=== PATIENT | female | born 1980 | race Caucasian/White ===

== ENCOUNTER 2017-02-12 09:05 | Emergency (ER) | payer OTHER ==
[~2017-02-12] VITALS: Ht 160 cm; Wt 60.5 kg
[2017-02-12 09:07] VITALS: Ht 160 cm; Wt 60.5 kg
[2017-02-12] MEDS ORDERED: ONDANSETRON (ODT) 4 MG TAB ODT STA (09:22)
[2017-02-12] MEDS ORDERED: AZIT250T94 PO (09:24)
[2017-02-12] MEDS ORDERED: D-ME473S18 PO (09:24)
[2017-02-12] MEDS ORDERED: IBUP-1542 PO (09:25)
[2017-02-12] MEDS ORDERED: ACETAMINOPHEN 325 MG TAB PO ONE (09:30)
--- NOTE | 2017-02-12 09:31 | ERD ---
ER Documentation Chief Complaint Date/Time DATE: 02/12/17 TIME: 09:29 Chief Complaint SORETHROAT AND HEAD CONGESTION X2 DAYS HPI This 36-year-old female complains of nasal congestion, sore throat and cough for last 3 days. She is some pain in the maxillary area as well. She denies fevers, abdominal pain, diarrhea. She has nausea but no vomiting ROS All systems reviewed and are negative except as per history of present illness. Medications Home Meds Active Scripts Ibuprofen* (Motrin*) 600 Mg Tab, 600 MG PO Q6, #15 TAB Prov:GENO YUEN MD 02/12/17 Dextromethorphan Hb-Promethazine Hcl (Promethazine DM Syrup) 473 Ml Syrup, 5 ML PO Q6H Y for COUGH, #4 OZ Prov:GENO YUEN MD 02/12/17 Azithromycin* (Zithromax*) 250 Mg Tablet, 250 MG PO .ZPACK DIRECTED, #6 TAB TAKE 500 MG (2 TABS) THE FIRST DAY THEN 250 MG (1 TAB) DAYS 2-5 Prov:GENO YUEN MD 02/12/17 Allergies Allergies: Coded Allergies: No Known Allergy (Unverified , 08/06/14) PMhx/Soc History of Surgery: No Anesthesia Reaction: No Hx Neurological Disorder: No Hx Respiratory Disorders: No Hx Cardiac Disorders: No Hx Psychiatric Problems: No Hx Miscellaneous Medical Probl: No Hx Alcohol Use: No Hx Substance Use: No Hx Tobacco Use: No Physical Exam Vitals Vital Signs Date Time Temp Pulse Resp B/P Pulse Ox O2 Delivery O2 Flow Rate FiO2 02/12/17 09:07 98.7 98 18 112/56 99 Physical Exam Const: [] Alert, [id number]. Head: Atraumatic Eyes: Normal Conjunctiva ENT: Normal External Ears, Nose and Mouth. TMs normal. 3+ nasal congestion. Mild maxillary tenderness. Oropharynx normal except postnasal drip. Neck: Full range of motion..~ No meningismus. Resp: Clear to auscultation bilaterally Cardio: Regular rate and rhythm, no murmurs Abd: Soft, non tender, non distended. Normal bowel sounds Skin: No petechiae or rashes Back: No midline or flank tenderness Ext: No cyanosis, or edema Neur: Awake and alert Psych: Normal Mood and Affect Results 24 hrs Current Medications Medications (Trade) Dose Ordered Sig/Francisco Route PRN Reason Start Time Stop Time Status Last Admin Dose Admin Ondansetron HCl (Zofran Odt) 8 mg ONCE STAT ODT 02/12/17 09:22 02/12/17 09:23 DC Acetaminophen (Tylenol Tab) 650 mg ONCE ONCE PO 02/12/17 09:30 02/12/17 09:31 Procedures/MDM Patient presents with URI symptoms signs of possible sinusitis. She will treated with Zithromax, promethazine and Tylenol. She was given Zofran for nausea here in the ED as well as Tylenol. The patient was stable with no new complaints during the ER course. Clinically, there is no current evidence to suggest meningitis, sepsis, acute abdomen, pneumonia, acute coronary syndrome, pulmonary embolism, or any other emergent condition appearing to require further evaluation or hospitalization. The patient should certainly return for any new or worsening symptoms per the aftercare instructions. They should otherwise follow-up with her primary care doctor for reevaluation this week. Departure Diagnosis: Primary Impression: Sinusitis Sinusitis location: frontal Chronicity: unspecified Qualified Code: J32.1 - Frontal sinusitis, unspecified chronicity Condition: Stable Patient Instructions: Sinusitis, Abx Tx Additional Instructions: Recheck for new or worsening symptoms or primary care doctor. GENO YUEN MD Feb 12, 2017 09:31
== END 2017-02-12 09:38 | disposition home or self-care (01) ==
LOC: FTE 09:05
DX: J32.1 Chronic frontal sinusitis (principal); R11.0 Nausea
CPT/HCPCS: Z7502; Z7610; 99284

== ENCOUNTER 2017-02-18 09:07 | Emergency (ER) | payer OTHER ==
[~2017-02-18] VITALS: Wt 61.0 kg
[~2017-02-18 09:07] MED LIST: AZIT250T94 PO; D-ME473S18 PO; IBUP-1542 PO
[2017-02-18 10:14] LABS: BASOPHILS % 0.2 % (0.0-2.0); EOSINOPHILS # 0.1 10^3/ul (0.0-0.5); EOSINOPHILS % 0.8 % (0.0-7.0); HEMATOCRIT 36.8 % (37.0-47.0); HEMOGLOBIN 12.2 g/dl (12.0-16.0); LYMPHOCYTES # 1.5 10^3/ul (0.8-2.9); LYMPHOCYTES % 16.9 % (15.0-51.0); MEAN CORPUSCULAR HEMOGLOBIN 28.9 pg (29.0-33.0); MEAN CORPUSCULAR HGB CONC 33.2 g/dl (32.0-37.0); MEAN CORPUSCULAR VOLUME 87.2 fl (82.0-101.0); MEAN PLATELET VOLUME 9.4 fl (7.4-10.4); MONOCYTE # 0.7 10^3/ul (0.3-0.9); NEUTROPHIL # 6.5 10^3/ul (1.6-7.5); NEUTROPHILS % 73.6 % (39.0-77.0); PLATELET COUNT 223 10^3/UL (140-415); RED BLOOD COUNT 4.22 10^6/ul (4.20-5.40); RED CELL DISTRIBUTION WIDTH 12.2 % (11.5-14.5); WHITE BLOOD COUNT 8.9 10^3/ul (4.8-10.8)
[2017-02-18 10:15] LABS: ADD UMIC NO; UR ASCORBIC ACID NEGATIVE (NEGATIVE); UR BILIRUBIN (Dip) NEGATIVE (NEGATIVE); UR BLOOD (Dip) NEGATIVE (NEGATIVE); UR CLARITY CLEAR (CLEAR); UR COLOR YELLOW (YELLOW); UR GLUCOSE (Dip) NEGATIVE (NEGATIVE); UR KETONES (Dip) NEGATIVE (NEGATIVE); UR LEUKOCYTE ESTERASE (Dip) NEGATIVE Leu/ul (NEGATIVE); UR NITRITE (Dip) NEGATIVE (NEGATIVE); UR SPECIFIC GRAVITY (Dip) 1.011 (1.003-1.030); UR TOTAL PROTEIN (Dip) NEGATIVE (NEGATIVE); UR UROBILINOGEN (Dip) NEGATIVE (NEGATIVE)
[2017-02-18 10:21] LABS: ADD SCAN DIFF NO
--- NOTE | 2017-02-18 10:27 | RADRPT ---
PROCEDURE: CT Abdomen and Pelvis without contrast CLINICAL INDICATION: Abdominal pain TECHNIQUE: Transaxial images were obtained through the abdomen and pelvis on a multi-slice scanner without the intravenous contrast administration. No oral contrast had previously been given. Sagit irina and coronal re-formations were subsequently reconstructed. One or more of the following dose reduction techniques were used: - Automated exposure control. - Adjustment of the mA and/or kV according to patient size. - Use of iterative reconstruction technique. Radiation dose: CTDIvol = 8.87 mGy; DLP = 410.71 mGy-cm. COMPARISON: 11/04/2008 FINDINGS: Lung bases: The visualized lung bases appear unremarkable. Liver: Since the previous study, the liver has increased in size and is now borderline enlarged. No focal lesion is identified. Gallbladder: The wall is not thickened. No radiopaque stones are identified. Bile ducts: The intra and extrahepatic bile ducts are normal in caliber. Pancreas: Appears normal with no mass or inflammation evident. Spleen: Normal in size with no focal lesion. Adrenals: Normal with no mass identified. Kidneys, ureters and bladder: The kidneys are normal in size and there is no mass, pathological calc ification, or hydronephrosis evident. There is no perinephric stranding. The ureters are normal in c aliber and no ureteroliths are identified. The bladder appears unremarkable. Reproductive organs: The uterus is anteverted and the endometrial cavity is again somewhat thickened . No adnexal mass is identified. The right adnexal cyst seen previously is no longer identified. Stomach and bowel: The stomach appears unremarkable. There are scattered diverticuli within the sig moid colon with mild increased stranding within the adjacent fat suspicious for mild changes of dive rticulitis. There is no longer inflammatory change involving the distal transverse colon as seen pre viously. There is no evidence of bowel obstruction. Appendix: A normal vermiform appendix is evident. Peritoneum: There is no longer free intraperitoneal fluid and no free air is identified. Aorta: Normal in caliber with no aneurysmal dilatation. IVC: Unremarkable. Lymph nodes: No pathologically enlarged nodes are identified. Osseous structures: The osseous elements appear intact. A 3 mm central posterior disk protrusion is seen at L4-L5. IMPRESSION: 1. Since the previous CT of 11/04/2008, there is no longer inflammatory change at the distal transv erse colon, but there are again diverticuli seen within the sigmoid colon with a slight increase in stranding in the adjacent fat which suggests development of mild diverticulitis of the sigmoid colon . There is no evidence of bowel obstruction and in normal vermiform appendix is evident. 2. There is no longer free intraperitoneal fluid and no free air is identified. 3. The uterus remains prominent with a thickened endometrial stripe. The right adnexal cyst seen p reviously is no longer identified. 4. A 3 mm central posterior disk protrusion is again evident and L4-L5. Physician Savana Date Time Electronically viewed and signed by Physician Savana on 02/18/2017 10:27 RH/
[2017-02-18 10:30] LABS: ALBUMIN 4.7 g/dl (3.3-4.9); ALBUMIN/GLOBULIN RATIO 1.8; BILIRUBIN,INDIRECT 1.2 mg/dl (0-1.1); BILIRUBIN,TOTAL 1.2 mg/dl (0.2-1.3); CREATININE 0.71 mg/dl (0.44-1.00); POTASSIUM 4.1 mmol/L (3.5-5.1); TOTAL PROTEIN 7.3 g/dl (6.1-8.1)
--- NOTE | 2017-02-18 10:30 | RADRPT ---
PROCEDURE: US Pelvis CLINICAL INDICATION: pelvic pain, not ready @ 0945 TECHNIQUE: Multiple sonographic images of the pelvis were obtained utilizing a transabdominal and endovaginal technique. The images were reviewed on a PACS workstation. COMPARISON: None. LMP: 02/02/2017 FINDINGS: The uterus measures 9.1 x 4.3 x 5.0 cm. The endometrial echo complex measures 16 mm in thickness. Several sub-centimeter Nabothian cysts are identified. The right ovary measures 3.0 x 1.6 x 1.9 cm. The left ovary measures 3.2 x 2.3 x 1.8 cm. There is no rmal vascular flow in both ovaries. There is a 2 cm ovoid complex cystic lesion with low level internal echoes and moderate peripheral v ascular flow in the left ovary which is likely a hemorrhagic/corpus luteal cyst. No significant pelvic free fluid is identified. IMPRESSION: 2 cm complex cystic lesion in the left ovary is likely a hemorrhagic/corpus luteal cyst. Otherwise, unremarkable pelvic ultrasound. RPTAT: EE Physician Amador Date Time Electronically viewed and signed by Physician Amador on 02/18/2017 10:29 /
[2017-02-18] MEDS ORDERED: HYDR-906 PO (10:49)
[2017-02-18] MEDS ORDERED: METR500T PO (10:49)
[2017-02-18] MEDS ORDERED: CIPR500T4 PO (10:49)
[2017-02-18] MEDS ORDERED: IBUP-1542 PO (10:50)
[2017-02-18 11:16] VITALS: BP 113/65; PULSE 95; RESP 17; TEMP 98.6
--- NOTE | 2017-02-18 11:35 | ERD ---
ER Documentation Chief Complaint Date/Time DATE: 02/18/17 TIME: 11:32 Chief Complaint GROIN PAIN X2 DAYS, NO VB, NO PAIN WITH URINATION HPI This is a 36-year-old female that presents to the ER with lower abdominal pain that is described as crampy in nature and intermittent. Patient states that pain radiates into her pelvic region. She denies any urinary frequency or dysuria. She denies any vaginal discharge. Patient has had diarrhea over the last 3 days diarrhea is watery and nonbloody. She denies any nausea or vomiting. She denies any fevers or chills. ROS 12 point review of systems was done, all negative except per HPI. Medications Home Meds Active Scripts Ibuprofen* (Motrin*) 600 Mg Tab, 600 MG PO Q6, #30 TAB Prov:PATRICK BARRIOS 02/18/17 Hydrocodone/Acetaminophen ([place] 5-325 Tablet) 1 Each Tablet, 1 TAB PO Q6H Y for PAIN, #10 TAB Prov:PATRICK BARRIOS 02/18/17 Metronidazole* (Flagyl*) 500 Mg Tablet, 500 MG PO TID for 7 Days, TAB Prov:PATRICK BARRIOS 02/18/17 Ciprofloxacin Hcl* (Ciprofloxacin Hcl*) 500 Mg Tablet, 500 MG PO BID for 7 Days , TAB Prov:PATRICK BARRIOS 02/18/17 Ibuprofen* (Motrin*) 600 Mg Tab, 600 MG PO Q6, #15 TAB Prov:GENO YUEN MD 02/12/17 Dextromethorphan Hb-Promethazine Hcl (Promethazine DM Syrup) 473 Ml Syrup, 5 ML PO Q6H Y for COUGH, #4 OZ Prov:GENO YUEN MD 02/12/17 Azithromycin* (Zithromax*) 250 Mg Tablet, 250 MG PO .ZPACK DIRECTED, #6 TAB TAKE 500 MG (2 TABS) THE FIRST DAY THEN 250 MG (1 TAB) DAYS 2-5 Prov:GENO YUEN MD 02/12/17 Allergies Allergies: Coded Allergies: No Known Allergy (Unverified , 08/06/14) PMhx/Soc History of Surgery: No Anesthesia Reaction: No Hx Neurological Disorder: No Hx Respiratory Disorders: No Hx Cardiac Disorders: No Hx Psychiatric Problems: No Hx Miscellaneous Medical Probl: Yes (DIVERTICULITUS) Hx Alcohol Use: No Hx Substance Use: No Hx Tobacco Use: No Physical Exam Vitals Vital Signs Date Time Temp Pulse Resp B/P Pulse Ox O2 Delivery O2 Flow Rate FiO2 02/18/17 11:16 98.6 95 17 113/65 99 Room Air 02/18/17 09:10 98.8 99 17 109/62 100 Physical Exam GENERAL: The patient is well developed and appropriate for usual state of health , in no apparent distress. HEENT: Atraumatic. CHEST: Clear to auscultation bilaterally. There are no rales, wheezes or rhonchi. HEART: Regular rate and rhythm. No murmurs, clicks, rubs or gallops. ABDOMEN: Soft, nondistended, tender to palpation in the lower mid abdomen, slightly tender to palpation in the lower left quadrant. Good bowel sounds. No rebound or guarding. No gross peritonitis. No gross organomegaly or masses. No Maloney sign or McBurney point tenderness. BACK: No midline or flank tenderness. NEURO: Alert and oriented Result Diagram: 02/18/17 0950 02/18/17 0950 Results 24 hrs Laboratory Tests Test 02/18/17 09:50 White Blood Count 8.910^3/ul Red Blood Count 4.2210^6/ul Hemoglobin 12.2g/dl Hematocrit 36.8% Mean Corpuscular Volume 87.2fl Mean Corpuscular Hemoglobin 28.9pg Mean Corpuscular Hemoglobin Concent 33.2g/dl Red Cell Distribution Width 12.2% Platelet Count 98349^3/UL Mean Platelet Volume 9.4fl Neutrophils % 73.6% Lymphocytes % 16.9% Monocytes % 8.0% Eosinophils % 0.8% Basophils % 0.2% Nucleated Red Blood Cells % 0.0/100WBC Neutrophils # 6.510^3/ul Lymphocytes # 1.510^3/ul Monocytes # 0.710^3/ul Eosinophils # 0.110^3/ul Basophils # 0.010^3/ul Nucleated Red Blood Cells # 0.010^3/ul Urine Color YELLOW Urine Clarity CLEAR Urine pH 9.0 Urine Specific [place] 1.011 Urine Ketones NEGATIVEmg/dL Urine Nitrite NEGATIVEmg/dL Urine Bilirubin NEGATIVEmg/dL Urine Urobilinogen NEGATIVEmg/dL Urine Leukocyte Esterase NEGATIVELeu/ul Urine Hemoglobin NEGATIVEmg/dL Urine Glucose NEGATIVEmg/dL Urine Total Protein NEGATIVEmg/dl Sodium Level 140mmol/L Potassium Level 4.1mmol/L Chloride Level 100mmol/L Carbon Dioxide Level 31mmol/L Anion Gap 13 Blood Urea Nitrogen 9mg/dl Creatinine 0.71mg/dl Glucose Level 85mg/dl Calcium Level 9.0mg/dl Total Bilirubin 1.2mg/dl Direct Bilirubin 0.00mg/dl Indirect Bilirubin 1.2mg/dl Aspartate Amino Transf (AST/SGOT) 18IU/L Alanine Aminotransferase (ALT/SGPT) 28IU/L Alkaline Phosphatase 62IU/L Total Protein 7.3g/dl Albumin 4.7g/dl Globulin 2.60g/dl Albumin/Globulin Ratio 1.80 Lipase 57U/L Procedures/MDM Differential diagnosis includes but is not limited to appendicitis, hernia, diverticulitis, UTI, constipation, ectopic , ovarian torsion, PID, Mittelschmerz, fibroid. This is a 36-year-old female presents to the ER with lower abdominal pain. Patient does seem to have a mild diverticulitis. At this time there is no evidence of abscess or perforation on CT scan. Patient does not have any evidence of leukocytosis, electrolyte abnormalities. She is also afebrile and extremely well-appearing with a benign physical examination. Patient is stable for outpatient therapy she will be treated with Cipro and metronidazole. Patient also has a small left ovarian cyst I discussed these findings with the patient. Patient should follow-up with her primary care doctor within 1-2 days return to ER sooner if symptoms worsen. My medical decision-making should with the patient she understands and agrees with plan. Departure Diagnosis: Primary Impression: Diverticulitis Additional Impression: Ovarian cyst Condition: Stable Patient Instructions: Understanding Diverticulosis and Diverticulitis, Diverticulitis Additional Instructions: Call your primary care doctor TOMORROW for an appointment during the next 1-2 days.See the doctor sooner or return here if your condition worsens before your appointment time. RETURN TO ER IMMEDIATELY IF YOU DEVELOP FEVERS, OR WORSENING ABDOMINAL PAIN. PATRICK BARRIOS Feb 18, 2017 11:34
== END 2017-02-18 11:21 | disposition home or self-care (01) ==
LOC: FTE 09:07
DX: K57.92 Diverticulitis of intestine, part unspecified, without perforation or abscess without bleeding (principal); N83.202 Unspecified ovarian cyst, left side; R10.2 Pelvic and perineal pain
CPT/HCPCS: 36415; 74176; 76830; 76856; 80053; 81003; 83690; 85025; Z7502

== ENCOUNTER 2017-08-26 07:09 | Day surgery (SDC) | END 2017-08-26 12:06 | disposition home or self-care (01) ==

== ENCOUNTER 2017-09-20 09:25 | Emergency (ER) | END 2017-09-20 10:46 | disposition home or self-care (01) ==

== ENCOUNTER 2018-10-11 09:07 | Emergency (ER) | payer OTHER ==
[~2018-10-11] VITALS: Ht 170.2 cm; Wt 62.8 kg
[~2018-10-11 09:07] MED LIST changes: +ACET500C5 PO; +AZIT250T PO; -AZIT250T94 PO; -D-ME473S18 PO; +PSEU60TA2 PO; +TYL500 PO
[2018-10-11 09:10] VITALS: Ht 170.2 cm; Wt 62.8 kg
[2018-10-11] MEDS ORDERED: FLUC150T PO (10:27)
--- NOTE | 2018-10-11 15:21 | ERD ---
ER Documentation Chief Complaint Chief Complaint abd pain with diarrhea x 1 month HPI 37-year-old female presents to the ED complaining of a few episodes of watery stools every day for the past month associated with mild to moderate intermittent lower quadrant abdominal pain. Patient states that she does not have the pain currently. She denies fevers, nausea, vomiting. Denies melena, black tarry stools. Patient states that she was seen by an urgent care about couple weeks prior to being seen and was given prescription for Flagyl and Cipro, patient states that she just finished the medications last week and continues to have diarrhea. She denies recent traveling, patient denies taking any other medication for this. Patient also states that she started to develop vaginal itchiness and redness after antibiotic use ROS All systems reviewed and are negative except as per history of present illness. Medications Home Meds Active Scripts Fluconazole* (Diflucan*) 150 Mg Tablet, 150 MG PO ONCE, #1 TAB Prov:KARTHIKEYAN STRONG PA-C 10/11/18 Acetaminophen* (Tylophen*) 500 Mg Capsule, 1 CAP PO Q6H PRN for PAIN AND OR ELEVATED TEMP, #20 CAP Prov:AGATHA MORILLO PA-C 09/20/17 Pseudoephedrine Hcl* (Pseudoephedrine Hcl*) 60 Mg Tablet, 60 MG PO Q6 PRN for CONGESTION, #20 TAB Prov:AGATHA MORILLO PA-C 09/20/17 Azithromycin* (Zithromax*) 250 Mg Tablet, 250 MG PO .ZPACK DIRECTED, #6 TAB TAKE 500 MG (2 TABS) THE FIRST DAY THEN 250 MG (1 TAB) DAYS 2-5 Prov:AGATHA MORILLO PA-C 09/20/17 Ibuprofen* (Motrin*) 600 Mg Tab, 600 MG PO Q6, #30 TAB Prov:PATRICK BARRIOS 02/18/17 Reported Medications Acetaminophen* (Tylenol*) 500 Mg Tab, 1000 MG PO Q4H PRN for PAIN AND OR ELEVATED TEMP, TAB 08/26/17 Allergies Allergies: Coded Allergies: No Known Allergy (Unverified , 08/06/14) PMhx/Soc History of Surgery: No Anesthesia Reaction: No Hx Neurological Disorder: No Hx Respiratory Disorders: No Hx Cardiac Disorders: No Hx Psychiatric Problems: No Hx Miscellaneous Medical Probl: No Hx Alcohol Use: No Hx Substance Use: No Hx Tobacco Use: No Smoking Status: Never smoker Physical Exam Vitals Vital Signs Date Temp Pulse Resp B/P (MAP) Pulse Ox O2 O2 Flow FiO2 Time Delivery Rate 10/11/18 97.8 107 18 133/73 100 09:10 (93) Physical Exam GENERAL: well-developed/well-nourished, in no apparent distress, non-toxic appearing HENT: NC/AT EYES: Conjunctiva normal NECK: Supple, no lymphadenopathy PULM: CTA bilaterally, no rales, rhonchi, or wheezing heard CV: Normal S1S2, RRR, good capillary refill GI: Soft, non-distended, NON tender to palpation Normal bowel sounds, no masses or organomegaly felt on exam No gross peritonitis, no bruits Negative Rosvings, negative Maloney, negative McBurney's point, negative CVAT : PELVIC EXAM: Cottage-cheese like vaginal discharge adherent to lateral vaginal wall, e rythematous vaginal wall BIMANUAL EXAM: non-tender, negative chandelier sign BACK: No midline tenderness, no masses EXT: No clubbing, cyanosis, or edema NEURO: Alert and Orientated, gait normal SKIN: Intact, normal turgor PSYCH: Normal mood and mentation Result Diagram: 10/11/18 0953 10/11/18 0953 Results 24 hrs Laboratory Tests Test 10/11/18 09:53 10/11/18 11:05 10/11/18 11:06 White Blood Count 7.5 10^3/ul Red Blood Count 4.52 10^6/ul Hemoglobin 13.2 g/dl Hematocrit 41.0 % Mean Corpuscular Volume 90.7 fl Mean Corpuscular Hemoglobin 29.2 pg Mean Corpuscular 32.2 g/dl Hemoglobin Concent Red Cell Distribution Width 12.3 % Platelet Count 245 10^3/UL Mean Platelet Volume 9.4 fl Immature Granulocytes % 0.400 % Neutrophils % 71.7 % Lymphocytes % 18.8 % Monocytes % 7.9 % Eosinophils % 0.9 % Basophils % 0.3 % Nucleated Red Blood Cells % 0.0 /100WBC Immature Granulocytes # 0.030 10^3/ul Neutrophils # 5.4 10^3/ul Lymphocytes # 1.4 10^3/ul Monocytes # 0.6 10^3/ul Eosinophils # 0.1 10^3/ul Basophils # 0.0 10^3/ul Nucleated Red Blood Cells # 0.0 10^3/ul Sodium Level 143 mmol/L Potassium Level 4.5 mmol/L Chloride Level 104 mmol/L Carbon Dioxide Level 33 mmol/L Anion Gap 6 Blood Urea Nitrogen 10 mg/dl Creatinine 0.63 mg/dl Est Glomerular Filtrat Rate mL/min > 60 mL/min Glucose Level 76 mg/dl Calcium Level 9.5 mg/dl Total Bilirubin 0.6 mg/dl Direct Bilirubin 0.00 mg/dl Indirect Bilirubin 0.6 mg/dl Aspartate Amino Transf (AST/SGOT) 37 IU/L Alanine 37 IU/L Aminotransferase (ALT/SGPT) Alkaline Phosphatase 65 IU/L Total Protein 7.8 g/dl Albumin 4.4 g/dl Globulin 3.40 g/dl Albumin/Globulin Ratio 1.29 Lipase 161 U/L Bedside Urine pH (LAB) 7.0 Bedside Urine Protein (LAB) Negative Bedside Urine Glucose (UA) Negative Bedside Urine Ketones (LAB) Negative Bedside Urine Blood 2+ Bedside Urine Nitrite (LAB) Negative Bedside Urine Leukocyte Esterase 1+ (L POC Beta HCG, Qualitative NEGATIVE Procedures/MDM This is a 37-year-old female presenting to the ED with diarrhea for the past month, patient meets criteria for chronic diarrhea. She is stable to be discharged home to follow-up with her primary care physician to get a GI specialist for further evaluation and management. Low suspicion for emergent abdominal condition at this time, patient is afebrile and did not exhibit much abdominal tenderness. Lab work was drawn. CBC did not show any evidence of leukocytosis or anemia. CMP did not show any evidence of renal, liver, or electrolyte abnormalities. In the ED, collected stool studies for ova and parasites, C. difficile and stool culture. Pelvic exam was done and a genital swab was sent out and was positive for yeast. Patient was given prescription for Diflucan and instructions to continue to follow-up with her primary care physician to get a GI referral. I have instructed her to return to the ER for any worsening symptoms. She understands agrees with plan Departure Diagnosis: Primary Impression: Diarrhea Additional Impression: Vulvovaginitis due to yeast Condition: Stable Patient Instructions: Diarrhea, Unk Cause (Adult) Report Pendg, Diet, Vomiting Or Diarrhea [6Yr-Adult] Additional Instructions: FOLLOW UP WITH YOUR PRIMARY CARE PHYSICIAN TOMORROW.Return to this facility if you are not improving as expected. Take all medicines as directed. Return to this facility if you are not improving as expected. 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
== END 2018-10-11 11:26 | disposition home or self-care (01) ==
LOC: FTE 09:07
DX: B37.3 Candidiasis of vulva and vagina (principal); R19.7 Diarrhea, unspecified; N89.8 Other specified noninflammatory disorders of vagina
CPT/HCPCS: 80053; 81003; 81025; 83690; 85025; 87045; 87177; 87210; 87591; 99284